=== PATIENT | male | born 1965 | race Caucasian/White ===

== ENCOUNTER 2023-05-14 15:29 | Emergency (ER) | payer BC, SELFPAY ==
[2023-05-14] VITALS (8 sets, daily range): BP systolic 138–180; BP diastolic 74–99; PULSE 68–75
[2023-05-14 15:51] LABS: % Basophils 0.4 % (0-2); % Eosinophils 2.8 % (0-6); % Immature Granulocytes 0.4 % (0-0.5); % Lymphocytes 18.7 % (20.5-51.1); % Monocytes 9.2 % (1.7-9.3); % Neutrophils 68.5 % (42.2-75.2); Absolute Eosinophils 0.2 10^3/uL (0-0.7); Absolute Lymphocytes 1.4 10^3/uL (1.2-3.4); Absolute Monocytes 0.7 10^3/uL (0.1-0.6); Absolute Neutrophils 5.1 10^3/uL (1.4-6.5); Hematocrit 45.5 % (39.0-52.0); Mean Corp Hgb Conc. 35.2 g/dL (33.0-37.0); Mean Corpuscular Hgb 28.9 pg (27.0-31.0); Mean Corpuscular Volume 82.3 fL (80.0-94.0); Mean Platelet Volume 9.9 fL (7.4-10.4); Nucleated Red Blood Cells % 0 % (-); Platelet Count 200 10^3/uL (130-400); Red Blood Cell Count 5.53 10^6/uL (4.70-6.10); Red Cell Dist. Width 13.5 % (11.5-14.5); White Blood Cell Count 7.4 10^3/uL (4.8-10.8)
[2023-05-14 16:03] LABS: ALT (SGPT) 28 U/L (0-50); AST (SGOT) 24 U/L (17-59); Albumin 4.5 g/dl (3.5-5.0); Alkaline Phosphatase 82 U/L (38-126); Blood Urea Nitrogen 20 mg/dl (9-20); Calcium 10.2 mg/dl (8.4-10.2); Carbon Dioxide 31 mmol/L (22-30); Chloride 97 mmol/L (98-107); Glucose 114 mg/dl (70-99); Potassium 3.8 mmol/L (3.5-5.1); Sodium 139 mmol/L (135-145); Total Bilirubin 0.7 mg/dl (0.2-1.3); Total Protein 8.1 g/dl (6.3-8.2); eGFR > 60.00
[2023-05-14 16:14] LABS: Troponin I < 0.012 ng/ml
--- NOTE | 2023-05-14 20:03 | ED.GENMED ---
History of Present Illness
General
Chief Complaint: Heart Rate Problem
Source: patient
Exam Limitations: none
Time Seen by Provider: 05/14/23 19:28
Travel History
Have you had any contact with someone who has COVID-19?: No
Do you have any symptoms of coronavirus? Fever > 100 degrees, chills, cough, shortness of breath, sore throat, loss of taste or smell, muscle aches, or headache?: No
History of Present Illness
History of Present Illness:
This is a 58 year old male that comes in with c/o nausea and dizziness. States that for the past week he has had some nausea with dizziness. States that he has not had any diarrhea. States that for a couple of days he felt bad and thought it might
be the stomach virus. States that he then had some dry mouth and then he would get moist in his mouth like he was going to Vomit but he didn't. States that last week his heart rate was 45 so he called his Store Receiver and they cut his Beta leia
in half. States that he has still had some nausea, a headache and occasional dizziness. Denies any fever, chills, chest pain, SOB, abd pain, vomiting, diarrhea, urinary burning.
Past History
Past History
ED Past Medical History: GERD (kidney stones), HTN, Hypercholesterolemia, NIDDM and Other (kidney stone, sleep apnea, pneumonia, previous episodes of abscess formation on his legs, recurrent sinusitis, )
ED Past Surgical History: Appendectomy, Urological (vasectomy) and Other (Septoplasty)
Patient has exhibited threatening behavior?: No
PSI?: No
Social History
Tobacco: Non-smoker
Alcohol: None
Drug: None
Personal:
Living: with family
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
Family History
Family History: CAD; Negative Early CAD or Sudden
Review of Systems
Review of Systems
All Other Systems: ROS reviewed and negative except as documented in HPI and ROS
Constitutional: Reports no symptoms; Denies fever or chills
EENT: Reports no symptoms
Respiratory: Denies cough or trouble breathing
Cardiac: Reports no symptoms; Denies chest pain
ABD/GI: Reports nausea; Denies abdominal pain, vomiting or diarrhea
: Reports no symptoms; Denies dysuria, frequency or urgency
Musculoskeletal: Reports no symptoms
Skin: Reports no symptoms
Neurological: Reports dizzy (Occasionally); Denies headache
Psychiatric: Reports no symptoms
Phy Exam
General Physical Exam
General Presentation: well appearing and no apparent distress
General age: appears stated age
General Skin: warm and dry
General Habitus: obese
General Mental: alert
General Hydration: appears well hydrated
ENT Exam
ENT Exam: TM's normal, pharynx normal and neck supple
Eye Exam
Eye Exam: EOMI
Cardiovascular Exam
Cardiovascular Exam: regular rate/rhythm, no edema, normal peripheral pulses and other (Murmur)
Pulmonary Exam
Pulmonary Exam: lungs clear, no respiratory distress, no rales, chest non tender, no crackles, no rhonchi, no wheezing and no cough
Gastrointestinal Exam
Gastrointestinal Exam: normal bowel sounds, non tender, soft, no organomegaly, no pulsatile mass, non distended and other (Obese)
Musculoskeletal Exam
Musculoskeletal Exam: full ROM and no edema
Skin Exam
Skin Exam: normal color, warm/dry, no rash and no petechia
Psychiatric Exam
Psychiatric Exam: normal mood/affect
Course
Orders/Labs/Results
Orders:
Orders
05/14/23 15:36
Electrocardiogram (*1) Urgent
Reason for Study: Abdominal Pain
EKG- Treatment ONCE
05/14/23 15:45
Complete Blood Count/With Diff Urgent
Comprehensive Metabolic Panel Urgent
TSH Reflex To Free T4 Urgent
Comment: ADD ON
Troponin I Urgent
05/14/23 19:53
Add On- LAB Urgent
Tests Added?: TSH with free T 4
Abnormal Lab Results
05/14/23
15:45
Absolute Monos (auto) 0.7 H 10^3/uL
(0.1-0.6)
Lymphocytes % 18.7 L %
(20.5-51.1)
Chloride 97 L mmol/L
(98-107)
Carbon Dioxide 31 H mmol/L
(22-30)
Glucose 114 H mg/dl
(70-99)
05/14/23 15:45
05/14/23 15:45
Chloride very slightly low. Carbon dioxide very slightly elevated. Glucose nonfasting. Troponin <0.012
Vital Signs
Initial and Last Documented VS:
Initial Vital Signs
Temp Pulse Resp BP Pulse Ox
98.3 F 64 18 180/95 97
05/14/23 15:34 05/14/23 15:34 05/14/23 15:34 05/14/23 15:34 05/14/23 15:34
Last Documented Vital Signs
Temp Pulse Resp BP Pulse Ox
98.3 F 60 20 138/74 96
05/14/23 15:34 05/14/23 20:45 05/14/23 20:45 05/14/23 20:00 05/14/23 20:45
MDM/Problems Addressed
Differential Diagnosis Includes:
Anxiety, viral Gi syndrome
MDM/Problems Addressed:
This is a 58 year male that comes in with c/o nausea and dizziness over the past week. States that his Store Receiver just also cut his Beta leia in half as his heart rate was low at 45. States that he felt he just need to be seen
Will check labs. Orthostatics,
Back into see patient. Explained to patient that his blood work is normal along with his Troponin. Patient has had a normal BP here and heart rate. Patient to follow up with the family doctor and his Store Receiver. Patient to increase his water
intake to 8-8oz glasses daily. Patient to return with any concerns.
Chronic conditions affecting care:
NA
Acute Exacerbation and/or Progression of Chronic Illness:
NA
*Pulse Oximetry
Patient hypoxic: no
*EKG
Interpreted by ED Provider?: Yes
Heart Rate: 65
Rate: normal
Rhythm: sinus
[place]: left axis deviation
Interval: normal interval
QRS Pattern: normal QRS
Ischemia: no ischemia
*Elementary Principal Interpretation
Rate: normal
Heart Rate: 71
Rhythm: sinus
*Critical Care Note
Total Time (30-74mins, 75-104mins- exclusive of procedures): Not Applicable
ED Attending Note
-
Portions of this chart may have been created with voice recognition software.� Occasional wrong word or��sound alike� substitutions may have occurred due to the inherent limitations of voice recognition software.
Discharge Plan
Departure
Patient Disposition: Home (Routine Discharge)
Date of Disposition: 05/14/23
Time of Disposition: 20:59
Patient with high blood pressure during this ER visit?: Yes
Condition: Good
Covid-19: Not Applicable
Discharge Problem:
Nausea, Episodic lightheadedness
Instructions: Dizziness, Nonvertigo, (DC)
Prescriptions:
No Action
amlodipine 10 MG tablet
10 mg PO DAILY
metoprolol succinate 25 MG tablet extended release 24 hr
25 mg PO DAILY
glimepiride 1 mg Tablet
1 mg PO DAILY
lisinopril-hydrochlorothiazide 20-25 mg Tablet
1 tab PO DAILY
Jardiance 10 mg Tablet
10 mg PO DAILY
pantoprazole [Protonix] 40 mg tablet,delayed release (DR/EC)
40 mg PO DAILY Qty: 10 0RF
bisacodyl [Dulcolax (bisacodyl)] 5 mg Tablet,Delayed Release (Dr/Ec)
10 mg PO DIRECTED
polyethylene glycol 3350 [Miralax] 17 gram/dose Powder
4 g PO DIRECTED
simethicone 80 mg Tablet,Chewable
160 mg PO DIRECTED
tadalafil 20 mg Tablet
20 mg PO DAILY PRN (Reason: intercourse)
meloxicam 15 mg Tablet
15 mg PO DAILY
Referrals:
Jennifer Campos PA-C [Family Provider] - Call in 1-3 days for appt
Activity Restrictions/Additional Instructions:
As discussed, your blood work is normal. A TSH was ordered by this is not back yet. This can be checked by your family doctor on line. Please increase your water intake to 8-8oz glasses daily. Your BP at this time was 138/74 and your heart rate is
b0's to 70's. Please follow up with your Store Receiver for further evaluation. IF YOU HAVE ANY OTHER CONCERNS PLEASE RETURN TO THE EMERGENCY ROOM
Interventions
Interventions:
*Risk Screen - Suicide Last Done: 05/14/23 15:34
*General Assessment Last Done: 05/14/23 15:34
*Neglect/Abuse Screening Last Done: 05/14/23 15:34
ED- Fall Risk Assessment Last Done: 05/14/23 19:51
*ED COVID-19 Vaccine History Last Done: 05/14/23 15:34
ED- Cardiac Assessment Last Done: 05/14/23 19:51
ED- Pulmonary Assessment Last Done: 05/14/23 19:51
== END 2023-05-14 21:22 | disposition home or self-care (01) ==
LOC: EMR 15:29
PROVIDERS: Physician Assistant; EMERGENCY PHYSICIAN Student in an Organized Health Care Education/Training Program; FAMILY PHYSICIAN Student in an Organized Health Care Education/Training Program
DX: R10.10 Upper abdominal pain, unspecified (principal); R42 Dizziness and giddiness; K21.9 Gastro-esophageal reflux disease without esophagitis; I10 Essential (primary) hypertension; E78.00 Pure hypercholesterolemia, unspecified; E11.9 Type 2 diabetes mellitus without complications; G47.30 Sleep apnea, unspecified
CPT/HCPCS: 99283; 80053; 84443; 84484; 85025; 93005

== ENCOUNTER 2023-12-24 15:15 | Emergency (ER) | payer BC, SELFPAY ==
[2023-12-24 15:17] VITALS: BP 152/101
--- NOTE | 2023-12-24 15:18 | ED.GENMED ---
ED Provider Triage
<ANGELA Foster - Last Filed: 12/24/23 15:24>
-
Patient seen by provider in Triage?: Seen in Triage
Attestation: A medical screening examination has been initiated by a qualified medical provider. Based on the assessment performed at this time, it has been determined that an emergent medical condition may exist and the patient has been informed
that further medical evaluation and possible additional diagnostic testing may be needed.
HPI: 58 yr old male c/o of headache for past 3 wk getting worse. PCP started on Doxycyline for possible sinus infection and he completed dose today .Slight nausea with headache no vomiting
Pt did take a zyrtec the other day with some relief however this afternoon headache was worse. Ibuprofen has not helped . Mucinex sinus did help a little.
Pt feels headache behind eyes vision slightly blurry .
No fevers. No meningismus , no photophobia.
Denies shortness breath ,chest pain palpitations
GENERAL: Alert , in no apparent distress
EYE: No visual abnormalities.
NECK: Trachea midline
ENT: No visible abnormalities.
LUNGS: No acute respiratory distress
NEUROLOGICAL: Alert and oriented
SKIN: Skin intact. No visible changes.
MUSCULOSKELETAL: Moving extremities normally
PSYCH: Normal and appropriate interaction.
This is a medical evaluation conducted in person to initiate diagnostic evaluation and provide initial therapeutics. Please see further documentation by the treating clinician.
History of Present Illness
<ANGELA Foster - Last Filed: 12/24/23 15:24>
General
Chief Complaint: Headache
Time Seen by Provider: 12/24/23 16:24
<Pau Rogel PA-C - Last Filed: 12/24/23 21:03>
General
Source: patient
History of Present Illness
History of Present Illness:
58yoM with a history of hypertension, hyperlipidemia, and type 2 diabetes presenting for evaluation of a headache ongoing x 3 weeks. Headache was gradual in onset and initially felt like a sinus infection was coming on. He reports frontal pain and
pressure and pain behind his bilateral eyes. He was seen by his PCP about 10 days ago and was started on a course of doxycycline for a possible sinus infection. He took his last dose of antibiotics today. He has not noticed any improvement with the
antibiotics which is unusual. He has also been taking an antihistamine and Mucinex. He had an episode today around 11 AM where he had a heat sensation to the front of his face with associated chills. This lasted about 2 hours before resolving.
His headache is currently rated as a 6/10 in severity. He denies any visual changes, photophobia, neck stiffness, weakness, head trauma, fevers.
Past History
<ANGELA Foster - Last Filed: 12/24/23 15:24>
Past History
ED Past Medical History: GERD (kidney stones), HTN, Hypercholesterolemia, NIDDM and Other (kidney stone, sleep apnea, pneumonia, previous episodes of abscess formation on his legs, recurrent sinusitis, )
ED Past Surgical History: Appendectomy, Urological (vasectomy) and Other (Septoplasty)
Patient has exhibited threatening behavior?: No
PSI?: No
Social History
Tobacco: Non-smoker
Alcohol: None
Drug: None
Personal:
Living: with family
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
Family History
Family History: CAD; Negative Early CAD or Sudden
Phy Exam
<Pau Rogel PA-C - Last Filed: 12/24/23 21:03>
General Physical Exam
General Presentation: well appearing and no apparent distress
General age: appears stated age
General Skin: warm and dry
General Habitus: normal
General Mental: alert
ENT Exam
ENT Exam: TM's normal, pharynx normal, neck supple and normocephalic
Additional ENT: No meningismus.
Eye Exam
Eye Exam: PERRL, EOMI, conjunctiva normal and other (Pressure in L eye 17mmHg and pressure in R eye 16mmHg)
Right 20/: 25
Left 20/: 16
Both 20/: 20
Neurological Exam
Neurological Exam: alert and no motor deficits
[place] Coma Scale
Eye Opening: Spontaneous
Verbal Response: Oriented
Motor Response: Obeys Commands
GCS Total Score: 15
Skin Exam
Skin Exam: normal color and warm/dry
Psychiatric Exam
Psychiatric Exam: normal mood/affect
Course
<ANGELA Foster - Last Filed: 12/24/23 15:24>
Orders/Labs/Results
Orders:
Orders
12/24/23 15:22
CT Head W/o Iv Contrast Urgent
Comment:
Reason For Exam: headache
12/24/23 15:24
Visual Acuity- Treatment ONCE
12/24/23 15:26
Complete Blood Count/With Diff Urgent
Comprehensive Metabolic Panel Urgent
Abnormal Lab Results
12/24/23
15:26
Absolute Monos (auto) 0.7 H 10^3/uL
(0.1-0.6)
Monocytes % 9.9 H %
(1.7-9.3)
BUN 21 H mg/dl
(9-20)
Glucose 139 H mg/dl
(70-99)
12/24/23 15:26
12/24/23 15:26
Vital Signs
Initial and Last Documented VS:
Initial Vital Signs
Temp Pulse Resp BP Pulse Ox
97.9 F 70 16 152/101 98
12/24/23 15:17 12/24/23 15:17 12/24/23 15:17 12/24/23 15:17 12/24/23 15:17
Last Documented Vital Signs
Temp Pulse Resp BP Pulse Ox
97.9 F 66 20 137/84 98
12/24/23 15:17 12/24/23 17:54 12/24/23 17:54 12/24/23 17:54 12/24/23 17:54
<Pau Rogel PA-C - Last Filed: 12/24/23 21:03>
Orders/Labs/Results
Orders:
Orders
12/24/23 15:22
CT Head W/o Iv Contrast Urgent
Comment:
Reason For Exam: headache
12/24/23 15:24
Visual Acuity- Treatment ONCE
12/24/23 15:26
Complete Blood Count/With Diff Urgent
Comprehensive Metabolic Panel Urgent
Abnormal Lab Results
12/24/23
15:26
Absolute Monos (auto) 0.7 H 10^3/uL
(0.1-0.6)
Monocytes % 9.9 H %
(1.7-9.3)
BUN 21 H mg/dl
(9-20)
Glucose 139 H mg/dl
(70-99)
12/24/23 15:26
12/24/23 15:26
Vital Signs
Initial and Last Documented VS:
Initial Vital Signs
Temp Pulse Resp BP Pulse Ox
97.9 F 70 16 152/101 98
12/24/23 15:17 12/24/23 15:17 12/24/23 15:17 12/24/23 15:17 12/24/23 15:17
Last Documented Vital Signs
Temp Pulse Resp BP Pulse Ox
97.9 F 66 20 137/84 98
12/24/23 15:17 12/24/23 17:54 12/24/23 17:54 12/24/23 17:54 12/24/23 17:54
<Pau Rogel PA-C - Last Filed: 12/24/23 21:03>
MDM/Problems Addressed
Differential Diagnosis Includes:
58yoM here with ongoing headaches x 3 weeks. Pain is frontal and behind eyes. Gradual in onset. Prescribed doxycycline for a sinus infection without relief. No visual changes. VSS. He is well appearing in no distress. Exam is reassuring. PERRL. EOMs
intact. Visual acuity and bilateral eye pressures WNL. Differential diagnosis includes but is not limited to: sinusitis, eustachian tube dysfunction, migraine
Initial ED plan: Labs obtained in triage which are unremarkable. CT head ordered and pending. Offered medications for his headache which he declines.
<Pau Rogel PA-C - Last Filed: 12/24/23 21:03>
*Critical Care Note
Total Time (30-74mins, 75-104mins- exclusive of procedures): Not Applicable
<Pau Rogel PA-C - Last Filed: 12/24/23 21:03>
Update Note
Update Note:
CT head is negative for acute intracranial abnormalities. Visualized paranasal sinuses are free of mucosal disease. No indication for admission. He was advised to start Flonase and use Tylenol PRN. Advised close f/u with PCP and ED return
precautions discussed. He expressed understanding and is agreeable to plan. He was discharged in stable condition.
ED Attending Note
<ANGELA Foster - Last Filed: 12/24/23 15:24>
-
Portions of this chart may have been created with voice recognition software.� Occasional wrong word or��sound alike� substitutions may have occurred due to the inherent limitations of voice recognition software.
Discharge Plan
Departure
Patient Disposition: Home (Routine Discharge)
Date of Disposition: 12/24/23
Time of Disposition: 17:44
Patient with high blood pressure during this ER visit?: Yes
Discharge Problem:
Headache
Instructions: Headache, Adult (DC)
Prescriptions:
No Action
amlodipine 10 MG tablet
10 mg PO DAILY
metoprolol succinate 25 MG tablet extended release 24 hr
25 mg PO DAILY
glimepiride 1 mg Tablet
1 mg PO DAILY
lisinopril-hydrochlorothiazide 20-25 mg Tablet
1 tab PO DAILY
Jardiance 10 mg Tablet
10 mg PO DAILY
pantoprazole [Protonix] 40 mg tablet,delayed release (DR/EC)
40 mg PO DAILY Qty: 10 0RF
bisacodyl [Dulcolax (bisacodyl)] 5 mg Tablet,Delayed Release (Dr/Ec)
10 mg PO DIRECTED
polyethylene glycol 3350 [Miralax] 17 gram/dose Powder
4 g PO DIRECTED
simethicone 80 mg Tablet,Chewable
160 mg PO DIRECTED
tadalafil 20 mg Tablet
20 mg PO DAILY PRN (Reason: intercourse)
meloxicam 15 mg Tablet
15 mg PO DAILY
Referrals:
Jennifer Campos PA-C [Family Provider] -
Activity Restrictions/Additional Instructions:
Start Flonase nasal spray daily. Continue taking your antihistamine. You may take Tylenol as needed for headaches.
Please follow-up with your family doctor. Return to the ER with any new or worsening symptoms.
Interventions
Interventions:
*Risk Screen - Suicide Last Done: 12/24/23 16:50
*General Assessment Last Done: 12/24/23 16:51
*Neglect/Abuse Screening Last Done: 12/24/23 16:50
ED- Fall Risk Assessment Last Done: 12/24/23 17:55
*ED COVID-19 Vaccine History Last Done: 12/24/23 16:50
*Nursing Disposition Last Done: 12/24/23 17:55
ED- Neurological Assessment Last Done: 12/24/23 16:50
Discharge Date and Time
Discharge Date/Time: 12/24/23 17:56
Print Language: DANISH
[2023-12-24 15:40] LABS: % Basophils 0.7 % (0-2); % Eosinophils 4.6 % (0-6); % Immature Granulocytes 0.4 % (0-0.5); % Monocytes 9.9 % (1.7-9.3); % Neutrophils 61.4 % (42.2-75.2); Absolute Basophils 0.1 10^3/uL (0-0.2); Absolute Eosinophils 0.3 10^3/uL (0-0.7); Absolute Lymphocytes 1.7 10^3/uL (1.2-3.4); Absolute Monocytes 0.7 10^3/uL (0.1-0.6); Absolute Neutrophils 4.5 10^3/uL (1.4-6.5); Hematocrit 44.9 % (39.0-52.0); Hemoglobin 15.8 g/dL (13.0-18.0); Mean Corp Hgb Conc. 35.2 g/dL (33.0-37.0); Mean Corpuscular Hgb 28.3 pg (27.0-31.0); Mean Corpuscular Volume 80.3 fL (80.0-94.0); Mean Platelet Volume 9.9 fL (7.4-10.4); Nucleated Red Blood Cells % 0 % (-); Platelet Count 191 10^3/uL (130-400); Red Blood Cell Count 5.59 10^6/uL (4.70-6.10); Red Cell Dist. Width 13.5 % (11.5-14.5); White Blood Cell Count 7.4 10^3/uL (4.8-10.8)
[2023-12-24 15:50] LABS: ALT (SGPT) 27 U/L (0-50); AST (SGOT) 23 U/L (17-59); Albumin 4.5 g/dl (3.5-5.0); Alkaline Phosphatase 75 U/L (38-126); Blood Urea Nitrogen 21 mg/dl (9-20); Calcium 9.5 mg/dl (8.4-10.2); Carbon Dioxide 28 mmol/L (22-30); Chloride 100 mmol/L (98-107); Glucose 139 mg/dl (70-99); Sodium 139 mmol/L (135-145); Total Bilirubin 0.5 mg/dl (0.2-1.3); Total Protein 7.8 g/dl (6.3-8.2); eGFR > 60.00
[2023-12-24 17:54] VITALS: BP 137/84
== END 2023-12-24 17:56 | disposition home or self-care (01) ==
LOC: EMR 15:15
PROVIDERS: Nurse Practitioner; EMERGENCY PHYSICIAN Emergency Medicine; FAMILY PHYSICIAN Student in an Organized Health Care Education/Training Program
DX: R51.9 Headache, unspecified (principal); I10 Essential (primary) hypertension; E78.00 Pure hypercholesterolemia, unspecified; E11.9 Type 2 diabetes mellitus without complications; G47.30 Sleep apnea, unspecified; K21.9 Gastro-esophageal reflux disease without esophagitis; Z82.49 Family history of ischemic heart disease and other diseases of the circulatory system; Z87.442 Personal history of urinary calculi
CPT/HCPCS: 99284; 70450; 80053; 85025

== ENCOUNTER 2024-03-11 23:32 | Emergency (ER) | payer BC, SELFPAY ==
[2024-03-11 23:46] VITALS: BP 155/89
[2024-03-12 00:29] LABS: ALT (SGPT) 22 U/L (0-50); AST (SGOT) 22 U/L (17-59); Albumin 4.2 g/dl (3.5-5.0); Alkaline Phosphatase 82 U/L (38-126); Blood Urea Nitrogen 23 mg/dl (9-20); Calcium 9.1 mg/dl (8.4-10.2); Carbon Dioxide 31 mmol/L (22-30); Chloride 96 mmol/L (98-107); Glucose 155 mg/dl (70-99); Potassium 3.7 mmol/L (3.5-5.1); Sodium 136 mmol/L (135-145); Total Bilirubin 0.4 mg/dl (0.2-1.3); Total Protein 7.2 g/dl (6.3-8.2); eGFR > 60.00
[2024-03-12 00:37] LABS: Troponin I < 0.012 ng/ml
[2024-03-12 00:38] LABS: % Basophils 0.6 % (0-2); % Eosinophils 3.2 % (0-6); % Immature Granulocytes 0.4 % (0-0.5); % Lymphocytes 23.4 % (20.5-51.1); % Monocytes 9.1 % (1.7-9.3); % Neutrophils 63.3 % (42.2-75.2); Absolute Basophils 0.1 10^3/uL (0-0.2); Absolute Eosinophils 0.3 10^3/uL (0-0.7); Absolute Monocytes 0.8 10^3/uL (0.1-0.6); Absolute Neutrophils 5.3 10^3/uL (1.4-6.5); Hematocrit 45.2 % (39.0-52.0); Hemoglobin 15.3 g/dL (13.0-18.0); Mean Corp Hgb Conc. 33.8 g/dL (33.0-37.0); Mean Corpuscular Hgb 28.7 pg (27.0-31.0); Mean Corpuscular Volume 84.8 fL (80.0-94.0); Mean Platelet Volume 9.9 fL (7.4-10.4); Nucleated Red Blood Cells % 0 % (-); Platelet Count 191 10^3/uL (130-400); Red Blood Cell Count 5.33 10^6/uL (4.70-6.10); Red Cell Dist. Width 13.7 % (11.5-14.5); White Blood Cell Count 8.4 10^3/uL (4.8-10.8)
[2024-03-12 01:35] VITALS: BP 143/83
[2024-03-12 01:36] VITALS: BP 143/83
[2024-03-12 02:00] VITALS: BP 136/64
--- NOTE | 2024-03-12 02:31 | ED.GENMED ---
History of Present Illness
General
Chief Complaint: Dizziness
Time Seen by Provider: 03/12/24 02:30
History of Present Illness
History of Present Illness:
TIME OF INITIAL ENCOUNTER: 2:35 AM
HPI: The patient presents due to fatigue over the past 2 weeks. Today he was concerned because he had more dizziness. This is associated with some degree of headache. He also had some spasms in his lips. He tried calling his improvement coordinator but not
received a phone call back. He is on amlodipine 10 mg as well as Toprol 12.5 mg (recently decreased dosing)�he did not take these medications today accidentally he still feels the same. He did take his lisinopril with hydrochlorothiazide. The
patient intentionally lost about 70 pounds over the last year or so.
EXAM:
GENERAL: Well appearing in no distress, elevated BMI
HEENT: Moist oral mucosa
CARDIOVASCULAR: No murmurs, normal heart rate, regular rhythm, No chest wall tenderness
PULMONARY: No respiratory distress, breath sounds are clear and equal
ABDOMEN: Soft with no peritoneal signs, no tenderness
NEUROLOGIC: Excellent strength all extremities, no coordination deficits, normal finger-nose testing
PSYCHIATRIC: Appropriate mental status, normal insight and judgement
EXTREMITIES: Nontender, no edema, moves all extremities equally
SKIN: No rash, no lesions
NUMBER AND COMPLEXITY OF PROBLEMS ADDRESSED AT THE ENCOUNTER
� Chronic conditions affecting care: High blood pressure, diabetes
� Acute Exacerbation and/or Progression of Chronic Illness: This is an acute problem but is had similar episodes in the past
� Differential Diagnosis includes: Anemia, electrolyte abnormality, thyroid disease considered however the patient states that his thyroid was just test as an outpatient, stress/anxiety patient denies
AMOUNT AND/OR COMPLEXITY OF DATA TO BE REVIEWED AND ANALYZED
� I performed an independent evaluation of and my interpretation is:
EKG: Sinus 58, left axis deviation, no acute ST abnormality
CT:
X-rays:
Laboratory Studies: CBC normal, sodium potassium normal, bicarb 31, BUN 23, creatinine 0.7, troponin less than 0.012
Other:
� Review of other/old records: I reviewed records, the patient has had ED visits related to headache, lightheadedness in the past
� Clinical information was obtained by an independent historian: Spoke to at bedside
� Prescriptions/Medications Considered but not given: Considered giving IV fluids however the patient states he has been drinking plenty of fluid at home
� Further testing considered but not performed: Considered CT imaging of the brain however the patient has had at least 8 CTs of the brain over the last 12 years
RISK OF COMPLICATIONS AND/OR MORBIDITY OR MORTALITY OF PATIENT MANAGEMENT
� Social determinants of health affecting care: Lives at home
� Discussion with other providers: None needed
� Escalation of care including admission/observation vs risk of discharge considered: Unclear etiology of patient's symptoms. Blood work is relatively unremarkable. EKG is unremarkable. Troponin less than 0.012 and symptoms
have been ongoing for over a week
ANY OTHER UPDATES:
Past History
Past History
ED Past Medical History: GERD (kidney stones), HTN, Hypercholesterolemia, NIDDM and Other (kidney stone, sleep apnea, pneumonia, previous episodes of abscess formation on his legs, recurrent sinusitis, )
ED Past Surgical History: Appendectomy, Urological (vasectomy) and Other (Septoplasty)
Patient has exhibited threatening behavior?: No
PSI?: No
Social History
Tobacco: Non-smoker
Alcohol: None
Drug: None
Personal:
Living: with family
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
Family History
Family History: CAD; Negative Early CAD or Sudden
Phy Exam
Physical Exam
Physical Exam:
See HPI
Course
Orders/Labs/Results
Orders:
Orders
03/11/24 23:51
Electrocardiogram (*1) Urgent
Reason for Study: Fatigue / Weakness
EKG- Treatment ONCE
Complete Blood Count/With Diff Urgent
Comprehensive Metabolic Panel Urgent
Troponin I Urgent
Abnormal Lab Results
03/12/24
00:03
Absolute Monos (auto) 0.8 H 10^3/uL
(0.1-0.6)
Chloride 96 L mmol/L
(98-107)
Carbon Dioxide 31 H mmol/L
(22-30)
BUN 23 H mg/dl
(9-20)
Glucose 155 H mg/dl
(70-99)
03/12/24 00:03
03/12/24 00:03
Vital Signs
Initial and Last Documented VS:
Initial Vital Signs
Temp Pulse Resp BP Pulse Ox
36.6 C 58 14 155/89 96
03/11/24 23:46 03/11/24 23:46 03/11/24 23:46 03/11/24 23:46 03/11/24 23:46
Last Documented Vital Signs
Temp Pulse Resp BP Pulse Ox
36.6 C 61 23 136/64 93
03/11/24 23:46 03/12/24 02:15 03/12/24 02:15 03/12/24 02:00 03/12/24 02:15
*Critical Care Note
Total Time (30-74mins, 75-104mins- exclusive of procedures): Not Applicable
ED Attending Note
-
Portions of this chart may have been created with voice recognition software.� Occasional wrong word or��sound alike� substitutions may have occurred due to the inherent limitations of voice recognition software.
Discharge Plan
Departure
Patient Disposition: Home (Routine Discharge)
Date of Disposition: 03/12/24
Time of Disposition: 02:50
Patient with high blood pressure during this ER visit?: Yes
Discharge Problem:
Dizziness
Instructions: Dizziness
Prescriptions:
No Action
amlodipine 10 MG tablet
10 mg PO DAILY
metoprolol succinate 25 MG tablet extended release 24 hr
12.5 mg PO DAILY
glimepiride 1 mg Tablet
1 mg PO DAILY
lisinopril-hydrochlorothiazide 20-25 mg Tablet
1 tab PO DAILY
Jardiance 10 mg Tablet
10 mg PO DAILY
pantoprazole [Protonix] 40 mg tablet,delayed release (DR/EC)
40 mg PO DAILY Qty: 10 0RF
bisacodyl [Dulcolax (bisacodyl)] 5 mg Tablet,Delayed Release (Dr/Ec)
10 mg PO DIRECTED
polyethylene glycol 3350 [Miralax] 17 gram/dose Powder
4 g PO DIRECTED
simethicone 80 mg Tablet,Chewable
160 mg PO DIRECTED
tadalafil 20 mg Tablet
20 mg PO DAILY PRN (Reason: intercourse)
meloxicam 15 mg Tablet
15 mg PO DAILY
Referrals:
Emily Campos MD [Family Provider] -
Activity Restrictions/Additional Instructions:
The cause of your symptoms is unclear. Follow-up your primary care doctor as well as improvement coordinator. Your main blood counts and EKG are unremarkable.
Interventions
Interventions:
*Risk Screen - Suicide Last Done: 03/11/24 23:46
*General Assessment Last Done: 03/11/24 23:46
*Neglect/Abuse Screening Last Done: 03/11/24 23:46
ED- Neurological Assessment Last Done: 03/12/24 01:39
Discharge Date and Time
Print Language: OCCITAN
== END 2024-03-12 03:04 | disposition home or self-care (01) ==
LOC: EMR 23:32
PROVIDERS: EMERGENCY PHYSICIAN Emergency Medicine; FAMILY PHYSICIAN Allergy & Immunology
DX: R42 Dizziness and giddiness (principal); K21.9 Gastro-esophageal reflux disease without esophagitis; I10 Essential (primary) hypertension; E78.00 Pure hypercholesterolemia, unspecified; E11.9 Type 2 diabetes mellitus without complications; G47.30 Sleep apnea, unspecified; Z87.442 Personal history of urinary calculi
CPT/HCPCS: 99284; 80053; 84484; 85025; 93005

== ENCOUNTER → 2024-03-22 07:28 | Outpatient (REF) | payer BC, SELFPAY | LOC: HWRAD 07:28 | PROVIDERS: ATTENDING PHYSICIAN Student in an Organized Health Care Education/Training Program | DX: R07.89 Other chest pain (principal); R53.83 Other fatigue; R42 Dizziness and giddiness; R19.7 Diarrhea, unspecified | CPT/HCPCS: 76700 ==

== ENCOUNTER → 2024-05-28 09:52 | Outpatient (REF) | payer BC, SELFPAY | LOC: RAD 09:52 | PROVIDERS: ATTENDING PHYSICIAN Student in an Organized Health Care Education/Training Program; FAMILY PHYSICIAN Student in an Organized Health Care Education/Training Program | DX: R00.1 Bradycardia, unspecified (principal) | CPT/HCPCS: 93225; 93226 ==

== ENCOUNTER 2024-10-26 15:55 | Emergency (ER) | payer BC, SELFPAY ==
[2024-10-26 16:02] VITALS: BP 132/96
[2024-10-26 16:36] LABS: Hematocrit 46.8 % (39.0-52.0); Hemoglobin 15.9 g/dL (13.0-18.0); Mean Corp Hgb Conc. 34.0 g/dL (33.0-37.0); Mean Corpuscular Volume 83.1 fL (80.0-94.0); Nucleated Red Blood Cells % 0 % (-); Platelet Count 200 10^3/uL (130-400); Red Cell Dist. Width 13.8 % (11.5-14.5)
[2024-10-26 16:45] LABS: APTT 28.8 Sec (23.4-35.0); INR 0.95; PT 13.2 Sec (11.4-14.6)
[2024-10-26 16:49] LABS: ALT (SGPT) 27 U/L (0-50); AST (SGOT) 22 U/L (17-59); Albumin 4.6 g/dl (3.5-5.0); Alkaline Phosphatase 68 U/L (38-126); Blood Urea Nitrogen 18 mg/dl (9-20); Calcium 9.6 mg/dl (8.4-10.2); Carbon Dioxide 28 mmol/L (22-30); Chloride 103 mmol/L (98-107); Glucose 142 mg/dl (70-99); Potassium 4.0 mmol/L (3.5-5.1); Sodium 139 mmol/L (135-145); Total Protein 7.9 g/dl (6.3-8.2); eGFR > 60.00
--- NOTE | 2024-10-26 17:21 | ED.GENMED ---
History of Present Illness
General
Chief Complaint: Nose Bleed
Time Seen by Provider: 10/26/24 16:23
History of Present Illness
History of Present Illness:
59-year-old male presents to the emergency department for evaluation of intermittent frequent bleeding from the left nare. Began to feel dizzy and lightheaded after episode today prompting him to come to the emergency department. Bleeding is
currently resolved. Denies dizziness at present. Not on anticoagulants
Past History
Past History
ED Past Medical History: GERD (kidney stones), HTN, Hypercholesterolemia, NIDDM and Other (kidney stone, sleep apnea, pneumonia, previous episodes of abscess formation on his legs, recurrent sinusitis, )
ED Past Surgical History: Appendectomy, Urological (vasectomy) and Other (Septoplasty)
Patient has exhibited threatening behavior?: No
PSI?: No
Social History
Tobacco: Non-smoker
Alcohol: None
Drug: None
Personal:
Living: with family
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
Family History
Family History: CAD; Negative Early CAD or Sudden
Review of Systems
Review of Systems
Allergies reviewed?: Yes
All Other Systems: ROS reviewed and negative except as documented in HPI and ROS
Phy Exam
Physical Exam
Physical Exam:
GEN: Well appearing, NAD, WDWN
HEENT: Oral mucosa moist, no scleral icterus. Evidence of recent bleeding from the left anterior nare with prominent vessel in Kiesselbach's plexus
Cardiac: Regular rate
Lung: No respiratory distress, no tachypnea
MSK: No gross deformity or injuries
Skin: Good color, no pallor or jaundice, no rashes
Neuro: AO x3, moves all extremities freely
Psych: Calm, cooperative
Course
Orders/Labs/Results
Orders:
Orders
10/26/24 16:05
EKG [Electrocardiogram (*1)] Urgent
Reason for Study: Vertigo / Dizzy
10/26/24 16:06
EKG- Treatment ONCE
10/26/24 16:20
Type+Screen Urgent
Complete Blood Count/With Diff Urgent
Comprehensive Metabolic Panel Urgent
PTT Urgent
Prothrombin Time Urgent
Abnormal Lab Results
10/26/24
16:20
Glucose 142 H mg/dl
(70-99)
10/26/24 16:20
10/26/24 16:20
Vital Signs
Initial and Last Documented VS:
Initial Vital Signs
Temp Pulse Resp BP Pulse Ox
98.2 F 60 16 132/96 98
10/26/24 16:02 10/26/24 16:02 10/26/24 16:02 10/26/24 16:02 10/26/24 16:02
Last Documented Vital Signs
Temp Pulse Resp BP Pulse Ox
98.2 F 60 16 132/96 98
10/26/24 16:02 10/26/24 16:02 10/26/24 16:02 10/26/24 16:02 10/26/24 17:21
Procedures
Nosebleed
Drug treatment: Lidocaine and Epinephrine
Treatment: Silver nitrate cautery
Post treatment bleeding: none- good control
MDM/Problems Addressed
MDM/Problems Addressed:
Cautery performed for definitive hemostasis, tolerated well with no issues.
*Pulse Oximetry
SaO2: 98
Oxygen Mode of Delivery: Room air
Patient hypoxic: no
*Critical Care Note
Total Time (30-74mins, 75-104mins- exclusive of procedures): Not Applicable
ED Attending Note
-
Portions of this chart may have been created with voice recognition software.� Occasional wrong word or��sound alike� substitutions may have occurred due to the inherent limitations of voice recognition software.
Discharge Plan
Departure
Patient Disposition: Home (Routine Discharge)
Date of Disposition: 10/26/24
Time of Disposition: 17:21
Patient with high blood pressure during this ER visit?: No
Discharge Problem:
Epistaxis
Instructions: Nosebleeds (DC)
Prescriptions:
No Action
amlodipine 10 MG tablet
10 mg PO DAILY
metoprolol succinate 25 MG tablet extended release 24 hr
12.5 mg PO DAILY
glimepiride 1 mg Tablet
1 mg PO DAILY
lisinopril-hydrochlorothiazide 20-25 mg Tablet
1 tab PO DAILY
Jardiance 10 mg Tablet
10 mg PO DAILY
pantoprazole [Protonix] 40 mg tablet,delayed release (DR/EC)
40 mg PO DAILY Qty: 10 0RF
bisacodyl [Dulcolax (bisacodyl)] 5 mg Tablet,Delayed Release (Dr/Ec)
10 mg PO DIRECTED
polyethylene glycol 3350 [Miralax] 17 gram/dose Powder
4 g PO DIRECTED
simethicone 80 mg Tablet,Chewable
160 mg PO DIRECTED
tadalafil 20 mg Tablet
20 mg PO DAILY PRN (Reason: intercourse)
meloxicam 15 mg Tablet
15 mg PO DAILY
Referrals:
Jennifer Campos PA-C [Family Provider, Family Practice]
Interventions
Interventions:
*Risk Screen - Suicide Last Done: 10/26/24 16:02
*Neglect/Abuse Screening Last Done: 10/26/24 16:02
*Nursing Disposition Last Done: 10/26/24 17:31
Discharge Date and Time
Discharge Date/Time: 10/26/24 17:32
Print Language: GUATEMALAN
== END 2024-10-26 17:32 | disposition home or self-care (01) ==
LOC: EMR 15:55
PROVIDERS: EMERGENCY PHYSICIAN Emergency Medicine; FAMILY PHYSICIAN Student in an Organized Health Care Education/Training Program
DX: R04.0 Epistaxis (principal); K21.9 Gastro-esophageal reflux disease without esophagitis; I10 Essential (primary) hypertension; E78.00 Pure hypercholesterolemia, unspecified; E11.9 Type 2 diabetes mellitus without complications; G47.30 Sleep apnea, unspecified; Z82.49 Family history of ischemic heart disease and other diseases of the circulatory system; Z87.442 Personal history of urinary calculi
CPT/HCPCS: 99283; 30901; 80053; 85025; 85610; 85730; 86850; 86900; 86901; 93005

== ENCOUNTER 2025-02-15 22:54 | Emergency (ER) | payer BC, SELFPAY ==
[2025-02-15 22:56] VITALS: BP 150/86
[2025-02-15 23:16] VITALS: BMI 52.4
[2025-02-15 23:39] LABS: Hematocrit 44.9 % (39.0-52.0); Hemoglobin 15.2 g/dL (13.0-18.0); Mean Corp Hgb Conc. 33.9 g/dL (33.0-37.0); Mean Corpuscular Volume 82.4 fL (80.0-94.0); Nucleated Red Blood Cells % 0 % (-); Platelet Count 196 10^3/uL (130-400); Red Cell Dist. Width 13.8 % (11.5-14.5)
[2025-02-16 00:12] LABS: ALT (SGPT) 24 U/L (0-50); AST (SGOT) 21 U/L (17-59); Albumin 4.1 g/dl (3.5-5.0); Alkaline Phosphatase 74 U/L (38-126); Blood Urea Nitrogen 25 mg/dl (9-20); Calcium 9.6 mg/dl (8.4-10.2); Carbon Dioxide 25 mmol/L (22-30); Chloride 100 mmol/L (98-107); Estimated Creatinine Clearance 116 ml/min; Glucose 129 mg/dl (70-99); Potassium 4.1 mmol/L (3.5-5.1); Sodium 132 mmol/L (135-145); Total Protein 7.5 g/dl (6.3-8.2); eGFR > 60.00
[2025-02-16 00:41] LABS: Magnesium 2.0 mg/dl (1.6-2.3)
--- NOTE | 2025-02-16 00:55 | ED.GENMED ---
History of Present Illness
General
Chief Complaint: Musculo-Skeletal Complaint
Source: patient
Exam Limitations: none
Time Seen by Provider: 02/16/25 00:06
Nursing documentation reviewed up to this point in time: agreed with
History of Present Illness
History of Present Illness:
HISTORY OF PRESENT ILLNESS
The patient is a 59-year-old male with a history of morbid obesity, jha-xnvfiqu-lojyinado diabetes, hypertension and stomach issues, presenting with muscle spasms in the legs over the past several weeks. Initially, the spasms were occurring mostly
at night and were associated with what he suspected was low potassium levels. Normally, such cramps resolve within a few days with oral potassium supplements and hydration; however, this time, the spasms have not improved. The patient describes the
spasms as feeling like pinpoint small areas of muscle spasms, brief in nature located bilateral lower medial legs and then more recently over the past few days he has had few twinges of discomfort bilateral medial to anterior thighs. Symptoms are
worse while sitting, improve when walking. He denies weakness, trouble walking, or symptoms worsening with motion.
Recently, the patient experienced significant diarrhea lasting a few days following the use of creatine, which was discontinued. Despite this, the muscle spasms began before the diarrhea episode. The patient reports that walking seems to alleviate
his symptoms. The patient admits to having neuropathy in his feet, which he believes is due to back issues rather than diabetes, and has a history of seeing a cougar hunter for related problems. He has been referred to a neurologist.
The patients current regimen includes htsf-hcl-veatece remedies, which have not provided much relief. He has previously undergone an electromyography (EMG) but it was many years ago. He is not currently experiencing any edema or symptoms consistent
with deep vein thrombosis. He denies cough or shortness of breath. No chest pain. No lengthy travel. No prior history of thromboembolism. There is no change in his blood pressure medication, but he was concerned tonight when his blood pressure
was elevated at 167/97.
Past History
Past History
ED Past Medical History: GERD (kidney stones), HTN, Hypercholesterolemia, NIDDM and Other (kidney stone, sleep apnea, pneumonia, previous episodes of abscess formation on his legs, recurrent sinusitis, morbid obesity)
ED Past Surgical History: Appendectomy, Urological (vasectomy) and Other (Septoplasty)
Patient has exhibited threatening behavior?: No
PSI?: No
Social History
Tobacco: Non-smoker
Alcohol: None
Drug: None
Personal:
Living: with family
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
Family History
Family History: CAD; Negative Early CAD or Sudden
Phy Exam
Physical Exam
Physical Exam:
GENERAL: 59-year-old obese gentleman appears his stated age. Bright alert, pleasant, easily communicative and in no acute distress.
EYE: anicteric
NECK: Supple, nontender, no meningismus, no significant adenopathy.
ENT: oral mucosa is moist. No rhinorrhea.
CARDIAC: Regular rate and rhythm. no murmur.
LUNGS: Clear breath sounds bilaterally, no acute respiratory distress, no wheezes/rales/rhonchi
ABDOMEN: Rotund, soft, nondistended, without focal tenderness, no r/g, no cvat. normoactive BS.
NEUROLOGICAL: Alert and oriented x3, no focal neuro deficits. Gait is martinez and steady.
SKIN: Warm and dry, normal color, skin intact. No rash.
MUSCULOSKELETAL: No C/C/E. peripheral pulses are full and equal b/l. No palpable tenderness. No palpable muscle spasm. No evidence of muscle fasciculations. No tenderness. Negative Homans' sign.
PSYCH: Normal and appropriate interaction.
Course
Orders/Labs/Results
Orders:
Orders
02/15/25 23:25
Complete Blood Count/With Diff Urgent
Comprehensive Metabolic Panel Urgent
Magnesium Urgent
Comment: ADD ON
02/16/25 00:10
Add On- LAB Urgent
Tests Added?: Mg
Abnormal Lab Results
02/15/25
23:25
Absolute Monos (auto) 0.7 H 10^3/uL
(0.1-0.6)
Immature Gran % 0.6 H %
(0-0.5)
Monocytes % 9.4 H %
(1.7-9.3)
Sodium 132 L mmol/L
(135-145)
BUN 25 H mg/dl
(9-20)
Glucose 129 H mg/dl
(70-99)
02/15/25 23:25
02/15/25 23:25
Vital Signs
Initial and Last Documented VS:
Initial Vital Signs
Temp Pulse Resp BP Pulse Ox
98.5 F 71 18 150/86 97
02/15/25 22:56 02/15/25 22:56 02/15/25 22:56 02/15/25 22:56 02/15/25 22:56
Last Documented Vital Signs
Temp Pulse Resp BP Pulse Ox
98.5 F 71 18 150/86 97
02/15/25 22:56 02/15/25 22:56 02/15/25 22:56 02/15/25 22:56 02/15/25 22:56
MDM/Problems Addressed
Differential Diagnosis Includes:
DIFFERENTIAL DIAGNOSIS
The Differential Diagnosis includes, in no particular order and is not limited to:
1. Electrolyte imbalance (e.g., hypokalemia)
2. Diabetic neuropathy
3. Peripheral vascular disease
4. Muscle strain or overuse
5. Magnesium deficiency
6. Dehydration
7. Sciatica
8. Restless leg syndrome
9. Medication effect (e.g., side effects of creatine)
10. Nerve compression or radiculopathy
MDM/Problems Addressed:
Intermittent muscle spasms of legs
Reassuring that patient is asymptomatic with ambulation and no associated symptoms.
History and exam appears more consistent with muscle fasciculations, muscle fatigue.
With recent diarrheal illness must consider dehydration, electrolyte abnormality, hypomagnesemia.
Thus far CBC is unremarkable.
Chemistries are pending. Will add magnesium.
Nothing in history nor exam to suspect thromboembolism. Nothing to suspect neuropathy. At this point no indication for imaging.
Chronic conditions affecting care: DM and HTN
*Pulse Oximetry
SaO2: 97
Oxygen Mode of Delivery: Room air
Patient hypoxic: no
*Critical Care Note
Total Time (30-74mins, 75-104mins- exclusive of procedures): Not Applicable
Update Note
Update Note:
01:05
Chemistries revealed normal potassium, normal magnesium.
Sodium mildly low at 132.
Normal creatinine at 1.0. Minimally elevated BUN at 25. Random glucose 129.
With mildly low sodium, minimally elevated BUN, patient may still be suffering with a bit of dehydration and this may be attributing to muscle fatigue/muscle cramps.
Recommend he stay well-hydrated on a daily basis, continue with Gatorade, electrolyte enriched fluids.
Prompt follow-up with PCP for recheck.
ED Attending Note
-
Portions of this chart may have been created with voice recognition software.� Occasional wrong word or��sound alike� substitutions may have occurred due to the inherent limitations of voice recognition software.
Discharge Plan
Departure
Patient Disposition: Home (Routine Discharge)
Date of Disposition: 02/16/25
Time of Disposition: 01:10
Patient with high blood pressure during this ER visit?: No
Condition: Good
Discharge Problem:
Leg cramps, Acute hyponatremia, Mild dehydration
Instructions: Dehydration in adults - ED (DC), Muscle spasms (muscle cramps)
Prescriptions:
No Action
amlodipine 10 MG tablet
10 mg PO DAILY
metoprolol succinate 25 MG tablet extended release 24 hr
12.5 mg PO DAILY
glimepiride 1 mg Tablet
1 mg PO DAILY
lisinopril-hydrochlorothiazide 20-25 mg Tablet
1 tab PO DAILY
Jardiance 10 mg Tablet
10 mg PO DAILY
pantoprazole [Protonix] 40 mg tablet,delayed release (DR/EC)
40 mg PO DAILY Qty: 10 0RF
bisacodyl [Dulcolax (bisacodyl)] 5 mg Tablet,Delayed Release (Dr/Ec)
10 mg PO DIRECTED
polyethylene glycol 3350 [Miralax] 17 gram/dose Powder
4 g PO DIRECTED
simethicone 80 mg Tablet,Chewable
160 mg PO DIRECTED
tadalafil 20 mg Tablet
20 mg PO DAILY PRN (Reason: intercourse)
meloxicam 15 mg Tablet
15 mg PO DAILY
Referrals:
Say See, [Family Provider, Family Practice] - Call in 1-3 days for appt
Interventions
Interventions:
*Risk Screen - Suicide Last Done: 02/15/25 22:56
*General Assessment Last Done: 02/15/25 23:16
*Neglect/Abuse Screening Last Done: 02/15/25 23:16
*ED COVID-19 Vaccine History Last Done: 02/15/25 23:16
*ED Influenza Vaccine History Last Done: 02/15/25 23:16
[facility] Fall Risk Assessment Tool Last Done: 02/15/25 23:41
ED-Musculoskeletal Assessment Last Done: 02/16/25 00:25
Discharge Date and Time
Print Language: CROATIAN
[2025-02-16 01:16] VITALS: BP 146/88
== END 2025-02-16 01:17 | disposition home or self-care (01) ==
LOC: EMR 22:54
PROVIDERS: Emergency Medicine; EMERGENCY PHYSICIAN Emergency Medicine; FAMILY PHYSICIAN Family Medicine
DX: R25.2 Cramp and spasm (principal); E87.1 Hypo-osmolality and hyponatremia; E86.0 Dehydration; E11.9 Type 2 diabetes mellitus without complications; E78.00 Pure hypercholesterolemia, unspecified; I10 Essential (primary) hypertension; G47.30 Sleep apnea, unspecified; Z87.442 Personal history of urinary calculi
CPT/HCPCS: 99283; 80053; 83735; 85025